=== PATIENT | male | born 1960 | race Caucasian/White ===

== ENCOUNTER 2024-12-12 20:27 | Inpatient (IN) | payer MEDICARE, SELFPAY ==
[2024-12-12 21:08] VITALS: BP 92/67; PULSE 118; RESP 18; TEMP 36.4; O2SAT 94; BMI 30.7
--- NOTE | 2024-12-12 21:13 | EKG_ITS ---
[address] [id number] [address], [place] [address] Test Date: 2024-12-12 Pat Name: Ashish Rosa Department: [facility] Room: Gender: Male Maternity Nurse: MEAGHAN : 1960 Requested By: Order Number: [id number] Reading MD: Sam Bermudez MD Measurements Intervals [place]oy Rate: 112 P: 58 SD: 144 QRS: -46 QRSD: 80 T: 52 QT: 336 QTc: 458 Interpretive Statements Sinus tachycardia Right atrial enlargement Pulmonary disease pattern Left anterior fascicular block NO PRIOR TRACING Electronically Signed On 12-13-2024 12:10:07 PDT by Sam Bermudez MD
--- NOTE | 2024-12-12 21:23 | DI.CT.S_ITS ---
PROCEDURE: CT ABDOMEN PELVIS W CON INDICATIONS: acute abd pain TECHNIQUE: After the administration of intravenous contrast, axial sections acquired from the lung bases to the pubic symphysis. Coronal and sagittal reformats were performed. For radiation dose reduction, the following was used: automated exposure control, adjustment of mA and/or kV according to patient size. COMPARISON: None. FINDINGS: Image quality: Diagnostic. Lower Chest: No significant findings. ABDOMEN: Liver: No solid mass. Gallbladder: No radiopaque gallstones or wall thickening. Biliary ducts: No biliary dilation. Pancreas: No ductal dilation. Spleen: Size is within normal limits. Adrenal Glands: No adrenal nodules. Kidneys and Ureters: No hydronephrosis. No solid mass. Bilateral simple appearing renal cysts are seen. No complex renal cystic lesion which requires follow up. Stomach and Bowel: Postsurgical changes are seen in right lower quadrant with surgical anastomosis appears intact. Fluid distended stomach and small bowel loops are noted with questionable wall thickening and enhancement. More distal small bowel loops are decompressed. Zone of transition likely involve distal small bowel loops in right lower quadrant series 2, image 92 and series 3, image 38. No abscess collection. Peritoneum: No abnormal intraperitoneal fluid. No free air. Ventral Wall: No significant ventral hernia. Abdominal Nodes: No retroperitoneal or mesenteric adenopathy by size criteria. Vessels: Aorta and inferior vena cava are normal in size. PELVIS: Pelvic Organs: Unremarkable. Bladder: No bladder wall thickening, accounting for underdistention. Pelvic Nodes: No enlarged lymph nodes. Miscellaneous: No inguinal hernias are seen. Bones: No aggressive osseous abnormality. IMPRESSION: 1. Finding is concerning for developing small bowel obstruction involving mid to distal small bowel loop in right lower quadrant abdomen possibly secondary to adhesions. 2. No abscess collection. No peritoneal free fluid or free air. Postsurgical changes in right abdomen with intact surgical anastomosis. 3. Other chronic findings as above. Dictated by: Omari Tilley M.D. on 12/12/2024 at 22:22 Approved by: Omari Tilley M.D. on 12/12/2024 at 22:26
[2024-12-12] MEDS: HYDROMORPHONE 0.5 MG INJ IV (21:26)
[2024-12-12] MEDS: ONDANSETRON 4 MG/2 ML INJ IV (21:27)
[2024-12-12 21:29] LABS: Add Manual Diff / Slide Review NO; Basophils Absolute Auto 0 /uL (0-100); Basophils Percent Auto 0.4 % (0-2); Eosinophils Absolute Auto 200 /uL (0-450); Eosinophils Percent Auto 3.3 % (2-4); Hematocrit 54.6 % (41-53); Hemoglobin 18.6 g/dL (13.5-17.5); Lymphocytes Absolute Auto 800 /uL (1100-4500); Lymphocytes Percent Auto 11.9 % (25-40); Mean Corpuscular HGB Conc 34.1 % (30-36); Mean Corpuscular Hemoglobin 33.2 PG (26-34); Mean Corpuscular Volume 97.6 fL (80-100); Monocytes Absolute Auto 700 /uL (0-900); Monocytes Percent Auto 11.8 % (3-14); Neutrophils Absolute Auto 4600 /uL (1500-7000); Neutrophils Percent Auto 72.6 % (50-75); Platelet Count 396 X10^3/uL (150-400); Red Cell Distribution Width 13.8 % (11.6-14.8); White Blood Cell Count 6.3 X10^3/uL (4.5-11.0)
[2024-12-12 21:38] LABS: Alanine Aminotransferase 22 IU/L (<50); Albumin 4.8 g/dL (3.5-5.0); Albumin Globulin Ratio 1.3 (1.0-2.8); Alkaline Phosphatase 113 U/L (38-126); Aspartate Aminotransferase 21 IU/L (17-59); BUN Creatinine Ratio 16.5 (6-22); Bilirubin Total 1.9 mg/dL (0.2-1.3); Blood Urea Nitrogen 30 mg/dL (9-20); Calcium 9.6 mg/dL (8.4-10.2); Carbon Dioxide 24 mmol/L (22-32); Chloride 99 mmol/L (98-107); Estimated Glomerular Filt Rate 40 mL/min (>60); Globulin 3.6 g/dL (1.7-4.1); Glucose 142 mg/dL (70-99); HEMOLYSIS < 15 (0-50); Lipase 43 U/L (23-300); Potassium 4.5 mmol/L (3.4-5.1); Sodium 136 mmol/L (137-145); Total Protein 8.4 g/dL (6.3-8.2)
[2024-12-12 21:56] VITALS: PULSE 108; RESP 24
[2024-12-12 22:00] VITALS: BP 99/63; PULSE 109; RESP 28; O2SAT 96
--- NOTE | 2024-12-12 22:03 | ED_ITS ---
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 Last obstruction hospitalization was approximately 3 years ago. For the last 48 hours he has not been able to keep any foods down with increasing distention and significant abdominal pain. No fevers chills, palpitations or chest pain. Related Data Allergies Allergy/AdvReac Type Severity Reaction Status Date / Time lithium Allergy Swelling Verified 12/12/24 21:08 of Lip/Tongue/Throat codeine AdvReac ITCHING Verified 12/12/24 21:08 Review of Systems Review of Systems Narrative: Pertinent positive and negative findings as per HPI Patient History Medical History (Updated 12/12/24 @ 22:14 by Franny Gross MD) Bowel obstruction Smoking Status: Current every day smoker Exam Initial Vital Signs Initial Vital Signs: Vital Signs Temperature 97.5 F L 12/12/24 21:08 Pulse Rate 118 H 12/12/24 21:08 Respiratory Rate 18 12/12/24 21:08 Blood Pressure 92/67 12/12/24 21:08 Pulse Oximetry 94 12/12/24 21:08 Oxygen Delivery Method Room Air 12/12/24 21:08 General: Acutely ill-appearing, distended and significantly tender abdomen Able to give a complete and coherent history. Well-nourished well-developed HEENT: Dry mucous membranes, normal sclera with reactive pupils, Respiratory: Lungs are clear to auscultation, no wheezing no rales no rhonchi. Full and symmetrical air movement Cardiac: Tachycardic but otherwise Regular rate and rhythm no murmurs no bruits Abdomen: Distended, multiple prior surgical scar is all well healed, tympanitic, tender diffusely with mild guarding no obvious rebound Skin: Quite dry and warm to the touch Neurologic: Grossly neurologically intact with no obvious asymmetries or abnormalities Extremities: No trauma, well perfused Psych: Cooperative, appropriate insight and affect Course Orders Ordered: ED Orders 12/12/24 21:13 EKG-12 Lead Stat 12/12/24 21:20 Complete Blood Count AUTO DIFF Stat Comprehensive Metabolic Panel Stat Lipase Stat 12/12/24 21:23 CT abdomen pelvis w con Stat Hydromorphone HCl (Hydromorphone 0.5 Mg Inj) 0.5 mg IV Q15MIN PRN PRN Reason: Pain, Last Admin: 12/12/24 21:26 Dose: 0.5 mg Documented By: ANMOL Sodium Chloride (Normal Saline 0.9%) 1,000 mls @ 1,000 mls/hr IV BOLUS ONE Stop: 12/12/24 22:22 Ondansetron HCl (Ondansetron 4 Mg/2 Ml Inj) 4 mg IV NOW PRN PRN Reason: Nausea And Vomiting Last Admin: 12/12/24 21:27 Dose: 4 mg Documented By: ANMOL Ondansetron HCl (Ondansetron 4 Mg Odt) 4 mg PO NOW PRN PRN Reason: Nausea And Vomiting Discontinued Medications Hydromorphone HCl (Hydromorphone 1 Mg Inj) 1 mg IV NOW ONE Stop: 12/12/24 22:03 Vital Signs Vital signs: Vital Signs - 8 hr 12/12/24 21:08 Temperature 97.5 F L Pulse Rate 118 H Respiratory Rate 18 Blood Pressure 92/67 Pulse Oximetry 94 Oxygen Delivery Method Room Air Medical Decision Making Lab Data 12/12/24 21:20 12/12/24 21:20 Labs: Lab Results 12/12/24 Range/Units 21:20 WBC 6.3 (4.5-11.0) X10^3/uL RBC 5.60 (4.5-5.9) X10^6/uL Hgb 18.6 H (13.5-17.5) g/dL Hct 54.6 H (41-53) % MCV 97.6 (80-100) fL MCH 33.2 (26-34) PG MCHC 34.1 (30-36) % RDW 13.8 (11.6-14.8) % Plt Count 396 (150-400) X10^3/uL Neut % (Auto) 72.6 (50-75) % Lymph % (Auto) 11.9 L (25-40) % [place] % (Auto) 11.8 (3-14) % Eos % (Auto) 3.3 (2-4) % Baso % (Auto) 0.4 (0-2) % Neut # (Auto) 4600 (4961-7782) /uL Lymph # (Auto) 800 L (4422-1213) /uL [place] # (Auto) 700 (0-900) /uL Eos # (Auto) 200 (0-450) /uL Baso # (Auto) 0 (0-100) /uL Sodium 136 L (137-145) mmol/L Potassium 4.5 (3.4-5.1) mmol/L Chloride 99 (98-107) mmol/L Carbon Dioxide 24 (22-32) mmol/L BUN 30 H (9-20) mg/dL Creatinine 1.82 H (0.66-1.25) mg/dL Estimated GFR 40 L (>60) mL/min BUN/Creatinine Ratio 16.5 (6-22) Glucose 142 H (70-99) mg/dL Calcium 9.6 (8.4-10.2) mg/dL Total Bilirubin 1.9 H (0.2-1.3) mg/dL AST 21 (17-59) IU/L ALT 22 (<50) IU/L Alkaline Phosphatase 113 (38-126) U/L Total Protein 8.4 H (6.3-8.2) g/dL Albumin 4.8 (3.5-5.0) g/dL Globulin 3.6 (1.7-4.1) g/dL Albumin/Globulin Ratio 1.3 (1.0-2.8) Lipase 43 (23-300) U/L Imaging Data CT scan - abdomen/pelvis: Radiologist's Impression: PROCEDURE: CT ABDOMEN PELVIS W CON INDICATIONS: acute abd pain TECHNIQUE: After the administration of intravenous contrast, axial sections acquired from the lung bases to the pubic symphysis. Coronal and sagittal reformats were performed. For radiation dose reduction, the following was used: automated exposure control, adjustment of mA and/or kV according to patient size. COMPARISON: None. FINDINGS: Image quality: Diagnostic. Lower Chest: No significant findings. ABDOMEN: Liver: No solid mass. Gallbladder: No radiopaque gallstones or wall thickening. Biliary ducts: No biliary dilation. Pancreas: No ductal dilation. Spleen: Size is within normal limits. Adrenal Glands: No adrenal nodules. Kidneys and Ureters: No hydronephrosis. No solid mass. Bilateral simple appearing renal cysts are seen. No complex renal cystic lesion which requires follow up. Stomach and Bowel: Postsurgical changes are seen in right lower quadrant with surgical anastomosis appears intact. Fluid distended stomach and small bowel loops are noted with questionable wall thickening and enhancement. More distal small bowel loops are decompressed. Zone of transition likely involve distal small bowel loops in right lower quadrant series 2, image 92 and series 3, image 38. No abscess collection. Peritoneum: No abnormal intraperitoneal fluid. No free air. Ventral Wall: No significant ventral hernia. Abdominal Nodes: No retroperitoneal or mesenteric adenopathy by size criteria. Vessels: Aorta and inferior vena cava are normal in size. PELVIS: Pelvic Organs: Unremarkable. Bladder: No bladder wall thickening, accounting for underdistention. Pelvic Nodes: No enlarged lymph nodes. Miscellaneous: No inguinal hernias are seen. Bones: No aggressive osseous abnormality. IMPRESSION: 1. Finding is concerning for developing small bowel obstruction involving mid to distal small bowel loop in right lower quadrant abdomen possibly secondary to adhesions. 2. No abscess collection. No peritoneal free fluid or free air. Postsurgical changes in right abdomen with intact surgical anastomosis. 3. Other chronic findings as above. Dictated by: Omari Tilley M.D. 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 Pertinent findings: CBC is unremarkable, hemo concentration suggesting dehydration CMP shows elevated creatinine at 1.8 with no prior labs for comparison. BUN is 30. Total bilirubin is elevated at 1.9 but remainder of LFTs are unremarkable Lipase is unremarkable Lactic acid Independently reviewed EKG: Sinus tachycardia at a rate of 112. No obvious ischemic changes Imaging studies independently reviewed: CT abdomen shows small bowel obstruction involving mid to distal small bowel loop in right lower quadrant abdomen possibly secondary to adhesions. No abscess collection. No peritoneal free fluid or free air. Postsurgical changes in right abdomen with intact surgical anastomosis. Consultations: Discussed with Dr. Dickerson, surgeon, we will consult Treatments: NG tube, Dilaudid, Zofran, fluid Discussion: 64-year-old gentleman with multiple prior surgeries, multiple prior bowel obstructions with recurrent bowel obstruction. He is dehydrated tachycardic hurting. IV fluids, pain medication, NG tube. At this point there was no indication of bowel ischemia or infection and antibiotics are not indicated. We will discuss hospital admission for pain control, continued NG suction and surgical consultation if required Discharge Plan Departure Patient Disposition: Admitted as Observation Clinical Impression: Bowel obstruction Qualifiers: Intestinal obstruction type: unspecified Intestinal obstruction extent: c omplete Qualified Code(s): K56.601 - Complete intestinal obstruction, unspecified as to cause
[2024-12-12] MEDS: HYDROMORPHONE 1 MG INJ IV (22:10)
[2024-12-12] MEDS: SODIUM CHLORIDE 0.9% 1,000 ML 1000 ML IV (22:14)
[2024-12-12 22:30] VITALS: BP 116/60; PULSE 108; RESP 19; O2SAT 99
[2024-12-12 23:00] VITALS: BP 122/69; PULSE 106; RESP 19; O2SAT 99
[2024-12-12 23:30] VITALS: BP 112/67; PULSE 101; RESP 19; O2SAT 95
[2024-12-13] VITALS (14 sets, daily range): BP systolic 105–157; BP diastolic 64–89; PULSE 84–107; RESP 16–51; TEMP 35.8–37.4; O2SAT 87–100; BMI 30.2
--- NOTE | 2024-12-13 00:35 | DI.RAD.S_ITS ---
PROCEDURE: XR CHEST 1V INDICATIONS: NG tube placement verification TECHNIQUE: One view of the chest was acquired. COMPARISON: None. FINDINGS: Surgical changes and devices: Nasogastric tube is in place. Distal tip and side port extends below the level of the diaphragm and projects in the left upper quadrant and expected location of the stomach. Lungs and pleura: Streaky bibasilar atelectasis. Lungs are otherwise clear. No pleural effusions or pneumothorax. Mediastinum: Mediastinal contours appear normal. Heart size is normal. Bones and chest wall: No suspicious bony lesions. Overlying soft tissues appear unremarkable. IMPRESSION: Nasogastric tube has been placed with adequate positioning. Dictated by: Terry Triplett M.D. on 12/13/2024 at 1:02 Approved by: Terry Triplett M.D. on 12/13/2024 at 1:03
[2024-12-13] MEDS: HYDROMORPHONE 0.5 MG INJ IV (00:59)
[2024-12-13] MEDS: ONDANSETRON 4 MG/2 ML INJ IV ×2 (02:20→05:07)
--- NOTE | 2024-12-13 03:54 | P.HP_ITS ---
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 Last obstruction hospitalization was approximately 3 years ago. He's had 12 total surgeries. No fevers chills, palpitations or chest pain. CT abdomen/pelvis showed SBO. Surgery consulted. NGT dropped draining 1.5L or more of brownish fluid. [facility] Medical History Bowel obstruction Social History household members: significant other Smoking Status: Current every day smoker alcohol intake: never Meds Home Medications and Allergies Allergies Allergy/AdvReac Type Severity Reaction Status Date / Time lithium Allergy Swelling Verified 12/12/24 21:08 of Lip/Tongue/Throat codeine AdvReac ITCHING Verified 12/12/24 21:08 Review of Systems Review of Systems Narrative: per HPI. Rest of 10-system review negative. Exam Vital Signs (past 8 hours): - 12/12/24 21:08 12/12/24 21:56 12/12/24 22:00 Temperature 97.5 F L Pulse Rate 118 H 108 H Respiratory Rate 18 24 Blood Pressure 92/67 99/63 Pulse Oximetry 94 Oxygen Delivery Method Room Air Oxygen Flow Rate 12/12/24 22:00 12/12/24 22:30 12/12/24 22:30 Temperature Pulse Rate 109 H 108 H Respiratory Rate 28 H 19 Blood Pressure 116/60 Pulse Oximetry 96 99 Oxygen Delivery Method Nasal Cannula Oxygen Flow Rate 3 12/12/24 23:00 12/12/24 23:00 12/12/24 23:30 Temperature Pulse Rate 106 H Respiratory Rate 19 Blood Pressure 122/69 112/67 Pulse Oximetry 99 Oxygen Delivery Method Nasal Cannula Oxygen Flow Rate 3 12/12/24 23:30 12/13/24 00:00 12/13/24 00:01 Temperature Pulse Rate 101 H 103 H Respiratory Rate 19 Blood Pressure 105/89 Pulse Oximetry 95 95 Oxygen Delivery Method Nasal Cannula Nasal Cannula Oxygen Flow Rate 3 3 12/13/24 00:01 12/13/24 00:30 12/13/24 00:30 Temperature Pulse Rate 102 H 101 H Respiratory Rate Blood Pressure 115/66 Pulse Oximetry 97 87 L Oxygen Delivery Method Nasal Cannula Room Air Oxygen Flow Rate 3 12/13/24 01:00 12/13/24 01:00 12/13/24 01:30 Temperature Pulse Rate 99 H 99 H Respiratory Rate 22 Blood Pressure 120/67 Pulse Oximetry 98 99 Oxygen Delivery Method Nasal Cannula Nasal Cannula Oxygen Flow Rate 3 3 12/13/24 01:30 12/13/24 02:00 12/13/24 02:00 Temperature Pulse Rate 97 H Respiratory Rate 24 Blood Pressure 125/68 116/71 Pulse Oximetry Oxygen Delivery Method Oxygen Flow Rate 12/13/24 02:30 12/13/24 02:30 12/13/24 03:00 Temperature Pulse Rate 95 H Respiratory Rate 18 Blood Pressure 127/71 117/64 Pulse Oximetry 99 Oxygen Delivery Method Nasal Cannula Oxygen Flow Rate 3 12/13/24 03:00 Temperature Pulse Rate 96 H Respiratory Rate 51 H Blood Pressure Pulse Oximetry Oxygen Delivery Method Oxygen Flow Rate Oxygen Delivery Method Nasal Cannula Oxygen Flow Rate 3 Narrative Exam Narrative: Patient was evaluated entirely through 2-way audio/video telemedicine with RN assistance in exam. Physician was not present at beside in person at any time for this evaluation. Consent for telemedicine obviously obtained from patient. Const Other: NAD, but appears weak, uncomfortable. HENMT Other: anicteric sclerae, NG tube in place, dry MM Resp Other: digital stethoscope - clear but late expiratory wheeze all murdock Cardio Other: RRR GI Other: distended but soft, hypo BS Skin Other: no rash or lesions seen Neuro Other: normal speech Extrem Other: no edema BLE Psych Other: appropriate affect Objective Imaging US - abdomen: Radiologist's impression: Finding is concerning for developing small bowel obstruction involving mid to distal small bowel loop in right lower quadrant abdomen possibly secondary to adhesions. Labs 12/12/24 21:20 12/12/24 21:20 Labs: Laboratory Results - last 24 hr 12/12/24 21:20 WBC 6.3 RBC 5.60 Hgb 18.6 H Hct 54.6 H MCV 97.6 MCH 33.2 MCHC 34.1 RDW 13.8 Plt Count 396 Neut % (Auto) 72.6 Lymph % (Auto) 11.9 L [place] % (Auto) 11.8 Eos % (Auto) 3.3 Baso % (Auto) 0.4 Neut # (Auto) 4600 Lymph # (Auto) 800 L [place] # (Auto) 700 Eos # (Auto) 200 Baso # (Auto) 0 Sodium 136 L Potassium 4.5 Chloride 99 Carbon Dioxide 24 BUN 30 H Creatinine 1.82 H Estimated GFR 40 L BUN/Creatinine Ratio 16.5 Glucose 142 H Calcium 9.6 Total Bilirubin 1.9 H AST 21 ALT 22 Alkaline Phosphatase 113 Total Protein 8.4 H Albumin 4.8 Globulin 3.6 Albumin/Globulin Ratio 1.3 Lipase 43 Assessment & Plan Assessment and plan (1) Bowel obstruction: Qualifiers: Intestinal obstruction extent: complete Intestinal obstruction type: u nspecified Qualified Code(s): K56.601 - Complete intestinal obstruction, unspecified as to cause Status: Acute Assessment & Plan narrative: 1. Acute, recurrent small bowel obstruction with inability to eat/keep food down and abdominal pain, POA 2. Dehydration, hemoconcentration 3. Mild hyponatremia 4. SABIHA Plan: 1. Admit med-surg, inpatient 2. NGT decompression 3. Surgery consulted 4. Zosyn empirically if develops fever or WBC elevation 5. IV fluids for dehydration, hemoconcentration 6. IV PPI 7. Zofran alternating with phenergan Code: full DVT prophylaxis: UFH Time-Based Coding :: [TOTAL MINUTES] spent with patient and on the chart (including review of chart, obtaining history, exam, reviewing outside data, placing orders, documenting exam and treatment plan, and counseling patient) on [DATE].
[2024-12-13] MEDS: BENZOCAINE/MENTHOL 1 LOZ PKT 1 EACH PO (05:07)
[2024-12-13] MEDS: MORPHINE 2 MG/ML INJ 1 MG IV (05:07)
[2024-12-13] MEDS: SODIUM CHLORIDE 0.9% 1,000 ML 100 ML IV ×2 (05:20→15:02)
[2024-12-13 05:25] LABS: Add Manual Diff / Slide Review NO; Basophils Absolute Auto 0 /uL (0-100); Basophils Percent Auto 0.2 % (0-2); Eosinophils Absolute Auto 400 /uL (0-450); Hematocrit 49.7 % (41-53); Hemoglobin 16.8 g/dL (13.5-17.5); Lymphocytes Absolute Auto 1000 /uL (1100-4500); Lymphocytes Percent Auto 13.1 % (25-40); Mean Corpuscular HGB Conc 33.7 % (30-36); Mean Corpuscular Hemoglobin 33.1 PG (26-34); Monocytes Absolute Auto 2000 /uL (0-900); Monocytes Percent Auto 25.1 % (3-14); Neutrophils Absolute Auto 4400 /uL (1500-7000); Neutrophils Percent Auto 56.6 % (50-75); Platelet Count 344 X10^3/uL (150-400); Red Blood Cell Count 5.07 X10^6/uL (4.5-5.9); Red Cell Distribution Width 13.9 % (11.6-14.8); White Blood Cell Count 7.8 X10^3/uL (4.5-11.0)
[2024-12-13 05:36] LABS: Alanine Aminotransferase 19 IU/L (<50); Albumin 4.5 g/dL (3.5-5.0); Albumin Globulin Ratio 1.6 (1.0-2.8); Alkaline Phosphatase 94 U/L (38-126); Aspartate Aminotransferase 20 IU/L (17-59); BUN Creatinine Ratio 20.5 (6-22); Bilirubin Total 1.7 mg/dL (0.2-1.3); Blood Urea Nitrogen 38 mg/dL (9-20); Calcium 8.9 mg/dL (8.4-10.2); Carbon Dioxide 23 mmol/L (22-32); Chloride 102 mmol/L (98-107); Estimated Glomerular Filt Rate 40 mL/min (>60); Globulin 2.9 g/dL (1.7-4.1); Glucose 127 mg/dL (70-99); HEMOLYSIS 20 (0-50); Lipase 19 U/L (23-300); Potassium 4.6 mmol/L (3.4-5.1); Sodium 137 mmol/L (137-145); Total Protein 7.4 g/dL (6.3-8.2)
[2024-12-13 05:37] LABS: Magnesium 1.7 mg/dL (1.6-2.3)
[2024-12-13 06:16] LABS: Ammonia (NH3) < 9 umol/L (9-30)
[2024-12-13] MEDS: HEPARIN 5,000 UNIT/ML VIAL 5000 UNIT SUBCUT ×2 (08:11→22:08)
[2024-12-13] MEDS: HYDROMORPHONE 2 MG INJ IV (08:11)
[2024-12-13] MEDS: PANTOPRAZOLE 40 MG VIAL IV (08:12)
[2024-12-13] MEDS: INFLUENZA HD VACCINE 0.5 ML SYRINGE IM (09:45)
--- NOTE | 2024-12-13 12:56 | PM.CN.IH.1 ---
History of Present Illness Consult details Date Patient Seen: 12/13/24 Time Patient Seen: 12:56 Chief complaint: Vomiting Narrative: Ashish is a 64-year-old man who has had multiple bowel obstructions and exploratory abdominal surgery for bowel obstructions over his lifetime since he had a perforated appendicitis at age 17. His most recent surgery was 3 years ago. He has had multiple ostomies and bowel resections. He presented with 48 hours of abdominal pain, distention, nausea and vomiting. A CT scan showed a small-bowel obstruction. Since coming to his room he has passed gas once. Meds Home Medications and Allergies Allergies Allergy/AdvReac Type Severity Reaction Status Date / Time lithium Allergy Swelling Verified 12/12/24 21:08 of Lip/Tongue/Throat codeine AdvReac ITCHING Verified 12/12/24 21:08 Exam Vital Signs (past 8 hours): - 12/13/24 05:49 12/13/24 08:00 12/13/24 09:44 Pulse Oximetry 96 Oxygen Delivery Method Nasal Cannula Nasal Cannula High Flow Nasal Cannula Oxygen Flow Rate 2 Oxygen Delivery Method High Flow Nasal Cannula Oxygen Flow Rate 2 Narrative Exam Narrative: Abdomen is soft, moderately distended without peritonitis Numerous abdominal surgical scars Objective Labs 12/13/24 05:10 12/13/24 05:10 Labs: Laboratory Results - last 24 hr 12/12/24 12/13/24 12/13/24 21:20 05:10 06:00 WBC 6.3 7.8 RBC 5.60 5.07 Hgb 18.6 H 16.8 Hct 54.6 H 49.7 MCV 97.6 98.0 MCH 33.2 33.1 MCHC 34.1 33.7 RDW 13.8 13.9 Plt Count 396 344 Neut % (Auto) 72.6 56.6 Lymph % (Auto) 11.9 L 13.1 L [place] % (Auto) 11.8 25.1 H Eos % (Auto) 3.3 5.0 H Baso % (Auto) 0.4 0.2 Neut # (Auto) 4600 4400 Lymph # (Auto) 800 L 1000 L [place] # (Auto) 700 2000 H Eos # (Auto) 200 400 Baso # (Auto) 0 0 Sodium 136 L 137 Potassium 4.5 4.6 Chloride 99 102 Carbon Dioxide 24 23 BUN 30 H 38 H Creatinine 1.82 H 1.85 H Estimated GFR 40 L 40 L BUN/Creatinine Ratio 16.5 20.5 Glucose 142 H 127 H Lactate Calcium 9.6 8.9 Magnesium 1.7 Total Bilirubin 1.9 H 1.7 H AST 21 20 ALT 22 19 Alkaline Phosphatase 113 94 Ammonia < 9 L Total Protein 8.4 H 7.4 Albumin 4.8 4.5 Globulin 3.6 2.9 Albumin/Globulin Ratio 1.3 1.6 Lipase 43 19 L D 12/13/24 09:16 WBC RBC Hgb Hct MCV MCH MCHC RDW Plt Count Neut % (Auto) Lymph % (Auto) [place] % (Auto) Eos % (Auto) Baso % (Auto) Neut # (Auto) Lymph # (Auto) [place] # (Auto) Eos # (Auto) Baso # (Auto) Sodium Potassium Chloride Carbon Dioxide BUN Creatinine Estimated GFR BUN/Creatinine Ratio Glucose Lactate 1.0 Calcium Magnesium Total Bilirubin AST ALT Alkaline Phosphatase Ammonia Total Protein Albumin Globulin Albumin/Globulin Ratio Lipase PFSH Medical History Bowel obstruction Social History household members: significant other Tobacco & Substance Use Smoking Status: Current every day smoker alcohol intake: never Assessment & Plan Assessment and plan (1) Small bowel obstruction: Status: Acute Plan Hopefully he will be able to resolve without surgery. He has passed gas one time so far. If he passes more gas today we can DC the NG tube and start sips of clears. Okay to have coffee. Time-Based Coding :: [TOTAL MINUTES] spent with patient and on the chart (including review of chart, obtaining history, exam, reviewing outside data, placing orders, documenting exam and treatment plan, and counseling patient) on [DATE]. PROFEE Charge Codes Inpatient or Observation consultation: [id number]
--- NOTE | 2024-12-13 13:52 | P.HP_ITS ---
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 Last obstruction hospitalization was approximately 3 years ago. He's had 12 total surgeries. No fevers chills, palpitations or chest pain. CT abdomen/pelvis showed SBO. Surgery consulted. NGT dropped draining 1.5L or more of brownish fluid. Hospital course: 12/13: Overnight patient continues to have discomfort stated that he has had this resolve with strong coffee in the past. Consensus decision between surgery myself in the patient was to try a triple expresso. The result was large bowel movement passing lots of gas and relief of abdominal pain starting on clear liquid diet. 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 For past surgical, past medical social history and family history please see bottom of the note: Review of systems: No unusual weight loss or weight gain No chest pain palpitations or shortness a breath wheezing No urinary symptoms No paresthesia paresis Physical exam: Uncomfortable appearing but fit elderly male quite muscular HEENT unremarkable Heart rate and rhythm regular lungs clear Abdomen is distended somewhat tender scant bowel sounds Extremities no edema For objective laboratory and imaging please see bottom of the note: Assessment and plan: * Abdominal distention and pain lasting several days with imaging suggestive of small-bowel obstruction, however, patient states that strong coffee usually relieves this and has done so in the past. Patient was given a triple expresso and within 45 minutes at a large bowel movement and passing large amounts of gas and no longer had abdominal pain or nausea NG tube was removed. 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 the 1st beginning with a burst appendix at age 17 DVT prophylaxis: * Not indicate Code status: * Full code FOR[facility]LY [facility] Medical History Bowel obstruction Social History household members: significant other Smoking Status: Current every day smoker alcohol intake: never Meds Home Medications and Allergies Allergies Allergy/AdvReac Type Severity Reaction Status Date / Time lithium Allergy Swelling Verified 12/12/24 21:08 of Lip/Tongue/Throat codeine AdvReac ITCHING Verified 12/12/24 21:08 Exam Vital Signs (past 8 hours): - 12/13/24 08:00 12/13/24 09:44 Pulse Oximetry 96 Oxygen Delivery Method Nasal Cannula High Flow Nasal Cannula Oxygen Flow Rate 2 Oxygen Delivery Method High Flow Nasal Cannula Oxygen Flow Rate 2 Objective Labs 12/13/24 05:10 12/13/24 05:10 Labs: Laboratory Results - last 24 hr 12/12/24 12/13/24 12/13/24 21:20 05:10 06:00 WBC 6.3 7.8 RBC 5.60 5.07 Hgb 18.6 H 16.8 Hct 54.6 H 49.7 MCV 97.6 98.0 MCH 33.2 33.1 MCHC 34.1 33.7 RDW 13.8 13.9 Plt Count 396 344 Neut % (Auto) 72.6 56.6 Lymph % (Auto) 11.9 L 13.1 L [place] % (Auto) 11.8 25.1 H Eos % (Auto) 3.3 5.0 H Baso % (Auto) 0.4 0.2 Neut # (Auto) 4600 4400 Lymph # (Auto) 800 L 1000 L [place] # (Auto) 700 2000 H Eos # (Auto) 200 400 Baso # (Auto) 0 0 Sodium 136 L 137 Potassium 4.5 4.6 Chloride 99 102 Carbon Dioxide 24 23 BUN 30 H 38 H Creatinine 1.82 H 1.85 H Estimated GFR 40 L 40 L BUN/Creatinine Ratio 16.5 20.5 Glucose 142 H 127 H Lactate Calcium 9.6 8.9 Magnesium 1.7 Total Bilirubin 1.9 H 1.7 H AST 21 20 ALT 22 19 Alkaline Phosphatase 113 94 Ammonia < 9 L Total Protein 8.4 H 7.4 Albumin 4.8 4.5 Globulin 3.6 2.9 Albumin/Globulin Ratio 1.3 1.6 Lipase 43 19 L D 12/13/24 09:16 WBC RBC Hgb Hct MCV MCH MCHC RDW Plt Count Neut % (Auto) Lymph % (Auto) [place] % (Auto) Eos % (Auto) Baso % (Auto) Neut # (Auto) Lymph # (Auto) [place] # (Auto) Eos # (Auto) Baso # (Auto) Sodium Potassium Chloride Carbon Dioxide BUN Creatinine Estimated GFR BUN/Creatinine Ratio Glucose Lactate 1.0 Calcium Magnesium Total Bilirubin AST ALT Alkaline Phosphatase Ammonia Total Protein Albumin Globulin Albumin/Globulin Ratio Lipase Assessment & Plan Time-Based Coding :: 55 minutes spent with patient and on the chart (including review of chart, obtaining history, exam, reviewing outside data, placing orders, documenting exam and treatment plan, and counseling patient). Quality MIPS - Admit I confirm the patient?s Advance Care Plan is present, Code status is documented, Surrogate decision maker is in patient?s record [If Yes, STOP here]: Yes MIPS - Meds 'Current medications' to include all prescriptions, [id number] products, herbals, cannabis/cannabidiol products, and vitamin/mineral/dietary (nutritional) supplements. I have utilized all available resources to obtain, update, or review the patient?s current medications. [If Yes, STOP here]: Yes
[2024-12-13] MEDS: SODIUM CHLORIDE 0.9% FLUSH 10 ML IV (22:08)
[2024-12-14 07:00] VITALS: O2SAT 97
[2024-12-14 10:48] VITALS: BP 163/99; PULSE 74; RESP 18; TEMP 36.1; O2SAT 99
--- NOTE | 2024-12-14 11:10 | P.DS_ITS ---
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 Last obstruction hospitalization was approximately 3 years ago. He's had 12 total surgeries. No fevers chills, palpitations or chest pain. CT abdomen/pelvis showed SBO. Surgery consulted. NGT dropped draining 1.5L or more of brownish fluid. Hospital course: 12/13: Overnight patient continues to have discomfort stated that he has had this resolve with strong coffee in the past. Consensus decision between surgery myself in the patient was to try a triple expresso. The result was large bowel movement passing lots of gas and relief of abdominal pain starting on clear liquid diet. 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 Discharge Providers Provider Date of admission: 12/13/24 03:43 Discharge Date: 12/14/24 Consults: 12/13/24 03:03 Consult to General Surgery Stat Comment: Consulting Provider: Abdirahman Dickerson Reason for consultation: Small-bowel obstruction Has provider been notified: Yes Discharge provider: Rg Ledbetter DO Summary Hospital Course Discharge Diagnosis: 1. Small bowel obstruction vs ileus, acute, present on admission 2. Chronic HTN Hospital Course: This is a 64-year-old male with multiple prior abdominal surgeries who was admitted with a small-bowel obstruction noted on presented imaging after presenting with abdominal pain and nausea. He had quick resolution of his symptoms with supportive care, eventually passing a bowel movement. After his bowel movement he had a 2nd, and was able to quickly advance his diet. Once he was able to tolerate a regular meal he was discharged home. He takes no medications currently, though apparently was supposed to be taking blood pressure medicines which he would stopped. His blood pressure was mildly elevated, but he reports good values at home. Recommend continued home monitoring and follow-up with primary care for possible further initiation of antihypertensives. Time Spent with Patient Time spent: Greater than 30 minutes Exam Vital Signs (past 8 hours): - 06/18/25 07:00 12/14/24 10:48 Temperature 96.9 F L Pulse Rate 74 Respiratory Rate 18 Blood Pressure 163/99 H Pulse Oximetry 97 99 Oxygen Delivery Method Room Air Oxygen Flow Rate 0 Oxygen Delivery Method Room Air Oxygen Flow Rate 0 Narrative Exam Narrative: Uncomfortable appearing but fit elderly male quite muscular HEENT unremarkable Heart rate and rhythm regular lungs clear Abdomen is distended somewhat tender scant bowel sounds Extremities no edema Objective Labs 12/13/24 05:10 12/13/24 05:10 [facility] Medical History Bowel obstruction Social History household members: significant other Smoking Status: Current every day smoker alcohol intake: never Discharge Plan Discharge Plan Patient Disposition: Home Provider Discharge Comment: You were admitted to the hospital with possible bowel obstruction or ileus. Now resolved and improved symptoms. Recommend checking BP at home, try to establish with PCP in the area. Diet/Activity/Treatments Diet: Diet as Tolerated and Regular Activity: No restrictions Skin/Wound/Dressing Care Report to your healthcare provider any signs of infection, such as:: increased pain Visit Report/Discharge Packet Stand Alone Forms: Patient Portal/API, Stroke Signs & Symptoms
--- NOTE | 2024-12-14 11:28 | PC.NURSE ---
Pt wanting to be D/C Denies discomfort. SL D/C intact. Home instructions given w/understanding Pt escorted ambulatory by staff to waiting vehicle D/C in stable status
== END 2024-12-14 11:23 | disposition home or self-care (01) | DRG 389 ==
LOC: ED 12-13 00:16 → AC 12-13 08:08
PROVIDERS: Surgery; Admitting Provider Internal Medicine; Emergency Provider Emergency Medicine; Visit Provider Internal Medicine
DX: K56.601 Complete intestinal obstruction, unspecified as to cause (principal); E87.1 Hypo-osmolality and hyponatremia; N17.9 Acute kidney failure, unspecified; F17.200 Nicotine dependence, unspecified, uncomplicated; E86.0 Dehydration; K56.7 Ileus, unspecified; I10 Essential (primary) hypertension; Z87.19 Personal history of other diseases of the digestive system; Z98.890 Other specified postprocedural states
CPT/HCPCS: 36415; 71045; 74177; 80053; 81003; 82140; 83605; 83690; 83735; 85025; 90471; 90662; 93005; 96361; 96374; 96375; 96376; 99284; 99285; J1171; J1644; J2270; J2405; J2470; Q9967

== ENCOUNTER 2025-04-25 09:42 | Inpatient (IN) | payer MEDICARE, MEDICAID, SELFPAY ==
[2024-12-13 04:37] VITALS: BMI 30.2
[2025-04-25] VITALS (23 sets, daily range): BP systolic 143–196; BP diastolic 80–106; PULSE 61–107; RESP 12–45; TEMP 35.9–36.6; O2SAT 91–98; BMI 30.8
--- NOTE | 2025-04-25 09:54 | EKG_ITS ---
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
[2025-04-25] MEDS: ONDANSETRON 4 MG/2 ML INJ IV ×2 (10:03→21:55)
[2025-04-25] MEDS: SODIUM CHLORIDE 0.9% 1,000 ML 1000 ML IV (10:03)
[2025-04-25 10:14] LABS: Add Manual Diff / Slide Review NO; Hematocrit 54.4 % (41-53); Hemoglobin 18.4 g/dL (13.5-17.5); Lymphocytes Absolute Auto 600 /uL (1100-4500); Mean Corpuscular HGB Conc 33.8 % (30-36); Mean Corpuscular Hemoglobin 32.3 PG (26-34); Mean Corpuscular Volume 95.5 fL (80-100); Platelet Count 375 X10^3/uL (150-400)
[2025-04-25 10:27] LABS: Alanine Aminotransferase 29 IU/L (<50); Albumin 5.5 g/dL (3.5-5.0); Albumin Globulin Ratio 1.4 (1.0-2.8); Alkaline Phosphatase 113 U/L (38-126); Blood Urea Nitrogen 30 mg/dL (9-20); Calcium 9.9 mg/dL (8.4-10.2); Carbon Dioxide 24 mmol/L (22-32); Chloride 99 mmol/L (98-107); Estimated Glomerular Filt Rate 51 mL/min (>60); Globulin 4.0 g/dL (1.7-4.1); Glucose 194 mg/dL (70-99); HEMOLYSIS < 15 (0-50); Lipase 54 U/L (23-300); Potassium 4.2 mmol/L (3.4-5.1); Sodium 139 mmol/L (137-145); Total Protein 9.5 g/dL (6.3-8.2)
[2025-04-25 10:29] LABS: Lactate (Lactic Acid) 4.2 mmol/L (0.7-2.1)
--- NOTE | 2025-04-25 10:48 | DI.CT.S_ITS ---
PROCEDURE: CT ABDOMEN PELVIS W CON INDICATIONS: concern bowel obstruction, 12+ surgeries, vomiting/diarrhea/ TECHNIQUE: After the administration of intravenous contrast, axial sections acquired from the lung bases to the pubic symphysis. Coronal and sagittal reformats were performed. For radiation dose reduction, the following was used: automated exposure control, adjustment of mA and/or kV according to patient size. COMPARISON: Merged With [facility], CT, CT ABDOMEN PELVIS W CON, 12/12/2024, 21:40. FINDINGS: Image quality: Diagnostic. Lower Chest: No significant findings. ABDOMEN: Liver: No solid mass. Gallbladder: No radiopaque gallstones or wall thickening. Biliary ducts: No biliary dilation. Pancreas: No ductal dilation. Spleen: Size is within normal limits. Adrenal Glands: No adrenal nodules. Kidneys and Ureters: No hydronephrosis. No solid mass. No complex renal cystic lesion which requires follow up. Stomach and Bowel: There is a proximal small bowel obstruction present. Proximal jejunum is dilated up to 6.1 cm. The obstruction is either partial or early. Peritoneum: No abnormal intraperitoneal fluid. No free air. Ventral Wall: No significant ventral hernia. Abdominal Nodes: No retroperitoneal or mesenteric adenopathy by size criteria. Vessels: Aorta and inferior vena cava are normal in size. PELVIS: Pelvic Organs: Prostatomegaly. Bladder: No bladder wall thickening, accounting for underdistention. Pelvic Nodes: No enlarged lymph nodes. Miscellaneous: No inguinal hernias are seen. Bones: No aggressive osseous abnormality. Old compressions of T12, L1, and L2. IMPRESSION: Proximal small bowel obstruction. Suspect osteoporosis. Old compressions. Dictated by: Swapnil Viera M.D. on 04/25/2025 at 11:43 Approved by: Swapnil Viera M.D. on 04/25/2025 at 11:47
[2025-04-25 11:07] LABS: Procalcitonin 1.27 ng/mL (<0.5)
[2025-04-25 11:46] LABS: Reflexed Lactate in 2 Hours Y
[2025-04-25 12:26] LABS: Lactate 2HR (Lactic Acid Rflx) 1.3 mmol/L (0.7-2.1)
--- NOTE | 2025-04-25 13:58 | PM.CN.IH.1 ---
History of Present Illness Consult details Date Patient Seen: 04/25/25 Time Patient Seen: 13:59 Chief complaint: possible intestinal blockage Reason for consult: SBO Requesting provider: Kaylyn Qureshi Narrative: Surgery consult requested by ED for SBO. Patient being admitted to hospitalist service. H/O multiple abdominal surgeries, multiple SBOs. Most recent admission for SBO resolved with conservative measures, discharged 12/14/24. CT: There is a proximal small bowel obstruction present. Proximal jejunum is dilated up to 6.1 cm. The obstruction is either partial or early. WBC 17.1. Lactate normalized after fluid. Meds Home Medications and Allergies Allergies Allergy/AdvReac Type Severity Reaction Status Date / Time lithium Allergy Swelling Verified 04/25/25 09:51 of Lip/Tongue/Throat codeine AdvReac ITCHING Verified 04/25/25 09:51 Exam Vital Signs (past 8 hours): - 04/25/25 09:43 04/25/25 09:48 04/25/25 09:49 Temperature 96.6 F L Pulse Rate 64 63 Respiratory Rate 45 H Blood Pressure 171/89 H 171/89 H Pulse Oximetry 97 96 Oxygen Delivery Method Room Air 04/25/25 09:49 04/25/25 10:00 04/25/25 10:10 Temperature Pulse Rate 61 105 H 104 H Respiratory Rate 29 H 20 Blood Pressure Pulse Oximetry 96 Oxygen Delivery Method 04/25/25 10:10 04/25/25 10:15 04/25/25 10:15 Temperature Pulse Rate 104 H Respiratory Rate 19 Blood Pressure 162/98 H 154/88 H Pulse Oximetry Oxygen Delivery Method 04/25/25 10:30 04/25/25 10:30 04/25/25 11:00 Temperature Pulse Rate 104 H 98 H Respiratory Rate 19 21 Blood Pressure 155/87 H Pulse Oximetry 97 Oxygen Delivery Method 04/25/25 11:30 04/25/25 12:00 04/25/25 12:08 Temperature Pulse Rate 98 H 101 H Respiratory Rate 20 22 Blood Pressure 165/99 H Pulse Oximetry 91 96 Oxygen Delivery Method 04/25/25 12:08 04/25/25 12:15 04/25/25 12:15 Temperature Pulse Rate 104 H 107 H Respiratory Rate 12 15 Blood Pressure 176/104 H Pulse Oximetry 92 94 Oxygen Delivery Method 04/25/25 12:30 04/25/25 12:30 04/25/25 12:45 Temperature Pulse Rate 102 H Respiratory Rate 21 Blood Pressure 175/102 H 179/103 H Pulse Oximetry Oxygen Delivery Method 04/25/25 12:45 04/25/25 13:00 04/25/25 13:00 Temperature Pulse Rate 101 H 99 H Respiratory Rate 21 25 H Blood Pressure 182/102 H Pulse Oximetry Oxygen Delivery Method 04/25/25 13:15 04/25/25 13:15 Temperature Pulse Rate 94 H Respiratory Rate 25 H Blood Pressure 196/106 H Pulse Oximetry Oxygen Delivery Method Oxygen Delivery Method Room Air Const Other: Uncomfortable, emesis bag in hand Resp Effort & Inspection: normal respiratory effort and able to speak in complete sentences Cardio Rate: regular rate GI Other: ABD: soft, distended, non-peritoneal Objective Labs 04/25/25 10:01 04/25/25 10:01 Labs: Laboratory Results - last 24 hr 04/25/25 04/25/25 10:01 12:08 WBC 17.1 H RBC 5.69 Hgb 18.4 H Hct 54.4 H MCV 95.5 MCH 32.3 MCHC 33.8 RDW 13.8 Plt Count 375 Neut % (Auto) 89.3 H Lymph % (Auto) 3.6 L [place] % (Auto) 5.5 Eos % (Auto) 0.5 L Baso % (Auto) 1.1 Neut # (Auto) 32696 H Lymph # (Auto) 600 L [place] # (Auto) 900 Eos # (Auto) 100 Baso # (Auto) 200 H Sodium 139 Potassium 4.2 Chloride 99 Carbon Dioxide 24 BUN 30 H Creatinine 1.49 H Estimated GFR 51 L BUN/Creatinine Ratio 20.1 Glucose 194 H Lactate 4.2 H* 1.3 Calcium 9.9 Total Bilirubin 2.4 H AST 34 ALT 29 Alkaline Phosphatase 113 Total Protein 9.5 H Albumin 5.5 H Globulin 4.0 Albumin/Globulin Ratio 1.4 Lipase 54 Procalcitonin 1.27 H PFSH Medical History Bowel obstruction Social History household members: significant other Tobacco & Substance Use Smoking Status: Current every day smoker alcohol intake: never Assessment & Plan Assessment and plan (1) Small bowel obstruction: Status: Acute Plan SBO, recurrent Plan NGT, NPO, IVF Plan gastrografin challenge 04/26 after period of decompression Recommend correcting lytes as needed, K, Mg, Phos Prior SBOs resolved with conservative measures Will follow Time-Based Coding :: [TOTAL MINUTES] spent with patient and on the chart (including review of chart, obtaining history, exam, reviewing outside data, placing orders, documenting exam and treatment plan, and counseling patient) on [DATE]. PROFEE Charge Codes Inpatient or Observation consultation: 16512
--- NOTE | 2025-04-25 14:17 | P.HP_ITS ---
History of Present Illness History of Present Illness Date Patient Seen: 04/25/25 Time Patient Seen: 14:17 Chief complaint: possible intestinal blockage Narrative: This is a 65-year-old male with a history of hypertension, hyperlipidemia and prior bowel perforations after a bowel obstruction who presents with 2 weeks of abdominal pain along with nausea and fevers followed by 4 days of diarrhea and vomiting bringing him finally to the ED. With placement of a nasogastric tube he slowly begins to feel better and copious amounts of bilious fluid are removed. His white blood count is 17.1 with a hemoglobin of 18.4 and a procalcitonin of 1.27. The total bilirubin is 2.4. The lactic acid level was initially 4.2, coming down to 1.[address] scan shows a proximal small-bowel obstruction with the jejunum dilated to 6 cm. Assessment and plan: Acute small-bowel obstruction, present on admission. Active. -general surgery has consulted and will be seeing him. -NG tube draining copious bilious fluid. -NPO, follow leukocytosis, hemoconcentration and electrolytes. -Gastrografin challenge is planned after decompression. Acute kidney injury, present on admission. Active. -creatinine 1.49. Treat with SBO decompression and IV fluid. History of hypertension, present on admission. Active. -no current treatment. -follow and treat with IV/p.o. as indicated and tolerated. Enoxaparin for DVT prevention [facility] Medical History (Updated 04/25/25 @ 19:13 by Jeancarlos Heaton MD) HLD (hyperlipidemia) HTN (hypertension) Bowel obstruction Surgical History (Updated 04/25/25 @ 19:14 by Jeancarlos Heaton MD) History of intestinal surgery Family History (Updated 04/25/25 @ 19:14 by Jeancarlos Heaton MD) Mother COPD (chronic obstructive pulmonary disease) Social History household members: significant other Smoking Status: Current every day smoker alcohol intake: never Meds Home Medications and Allergies Home Medications ?Medication ?Instructions ?Recorded ?Confirmed ?Type No Known Home Medications 04/25/2503/30 History Allergies Allergy/AdvReac Type Severity Reaction Status Date / Time lithium Allergy Swelling Verified 04/25/25 15:48 of Lip/Tongue/Throat codeine AdvReac ITCHING Verified 04/25/25 15:48 Review of Systems Review of Systems Narrative: Positive for abdominal pain, diarrhea, vomiting, fever. Negative for chills, sweats, chest pain, dysuria, joint pain, rash, sore throat. Exam Vital Signs (past 8 hours): - 04/25/25 09:43 04/25/25 09:48 04/25/25 09:49 Temperature 96.6 F L Pulse Rate 64 63 Respiratory Rate 45 H Blood Pressure 171/89 H 171/89 H Pulse Oximetry 97 96 Oxygen Delivery Method Room Air 04/25/25 09:49 04/25/25 10:00 04/25/25 10:10 Temperature Pulse Rate 61 105 H 104 H Respiratory Rate 29 H 20 Blood Pressure Pulse Oximetry 96 Oxygen Delivery Method 04/25/25 10:10 04/25/25 10:15 04/25/25 10:15 Temperature Pulse Rate 104 H Respiratory Rate 19 Blood Pressure 162/98 H 154/88 H Pulse Oximetry Oxygen Delivery Method 04/25/25 10:30 04/25/25 10:30 04/25/25 11:00 Temperature Pulse Rate 104 H 98 H Respiratory Rate 19 21 Blood Pressure 155/87 H Pulse Oximetry 97 Oxygen Delivery Method 04/25/25 11:30 04/25/25 12:00 04/25/25 12:08 Temperature Pulse Rate 98 H 101 H Respiratory Rate 20 22 Blood Pressure 165/99 H Pulse Oximetry 91 96 Oxygen Delivery Method 04/25/25 12:08 04/25/25 12:15 04/25/25 12:15 Temperature Pulse Rate 104 H 107 H Respiratory Rate 12 15 Blood Pressure 176/104 H Pulse Oximetry 92 94 Oxygen Delivery Method 04/25/25 12:30 04/25/25 12:30 04/25/25 12:45 Temperature Pulse Rate 102 H Respiratory Rate 21 Blood Pressure 175/102 H 179/103 H Pulse Oximetry Oxygen Delivery Method 04/25/25 12:45 04/25/25 13:00 04/25/25 13:00 Temperature Pulse Rate 101 H 99 H Respiratory Rate 21 25 H Blood Pressure 182/102 H Pulse Oximetry Oxygen Delivery Method 04/25/25 13:15 04/25/25 13:15 Temperature Pulse Rate 94 H Respiratory Rate 25 H Blood Pressure 196/106 H Pulse Oximetry Oxygen Delivery Method Oxygen Delivery Method Room Air Narrative Exam Narrative: Alert and oriented x3. Appears to be in significant and severe distress, also experiencing sedating effects of pain medicine. Pupils are equally round and reactive to light and accommodation. Extraocular muscles are intact. Sclerae are pink and nonicteric. Throat looks normal. No lymph nodes are felt head, neck, supraclavicular area. JVD is less than 6 cm. No carotid bruits are heard. Heart is regular rate and rhythm without murmur. Lungs are clear to auscultation bilaterally. Abdomen is distended and mildly tender. NG tube is in the left nostril. There are large scars across the abdomen. Extremities have no ankle edema. Skin has no rash or jaundice. Motor function is 3/5 throughout. There is no tremor. Reflexes are symmetric. Objective Labs 04/25/25 10:04/25/25 10:01 Labs: Laboratory Results - last 24 hr 04/25/25 04/25/25 10:01 12:08 WBC 17.1 H RBC 5.69 Hgb 18.4 H Hct 54.4 H MCV 95.5 MCH 32.3 MCHC 33.8 RDW 13.8 Plt Count 375 Neut % (Auto) 89.3 H Lymph % (Auto) 3.6 L [place] % (Auto) 5.5 Eos % (Auto) 0.5 L Baso % (Auto) 1.1 Neut # (Auto) 69471 H Lymph # (Auto) 600 L [place] # (Auto) 900 Eos # (Auto) 100 Baso # (Auto) 200 H Sodium 139 Potassium 4.2 Chloride 99 Carbon Dioxide 24 BUN 30 H Creatinine 1.49 H Estimated GFR 51 L BUN/Creatinine Ratio 20.1 Glucose 194 H Lactate 4.2 H* 1.3 Calcium 9.9 Total Bilirubin 2.4 H AST 34 ALT 29 Alkaline Phosphatase 113 Total Protein 9.5 H Albumin 5.5 H Globulin 4.0 Albumin/Globulin Ratio 1.4 Lipase 54 Procalcitonin 1.27 H Assessment & Plan Time-Based Coding :: [TOTAL MINUTES] spent with patient and on the chart (including review of chart, obtaining history, exam, reviewing outside data, placing orders, documenting exam and treatment plan, and counseling patient) on [DATE].
--- NOTE | 2025-04-25 14:25 | DI.RAD.S_ITS ---
PROCEDURE: XR ABDOMEN 1V INDICATIONS: NG tube confirmation TECHNIQUE: One view of the abdomen acquired. COMPARISON: [facility], CT, CT ABDOMEN PELVIS W CON, 04/25/2025, 10:44. FINDINGS AND IMPRESSION: Enteric tube terminates in the gastric cardia with side port above the GE junction. 10-15 cm of further advancement suggested Dilated upper small bowel loops, better assessed on CT. Dictated by: David Canales M.D. on 04/25/2025 at 15:07 Approved by: David Canales M.D. on 04/25/2025 at 15:08
[2025-04-25] MEDS: DEXTROSE 5%-0.9% NS 1,000 ML 125 ML IV (17:21)
--- NOTE | 2025-04-26 | DI.RAD.S_ITS ---
PROCEDURE: XR GASTROGRAFIN CHALLENGE COMPARISON: [facility], CR, XR ABDOMEN 1V, 04/25/2025, 14:30. INDICATIONS: small bowel obstruction FINDINGS/IMPRESSION: Contrast is seen throughout the small bowel and colon. No significantly dilated loops of small bowel are appreciated. Dictated by: Cristian Turcios M.D. on 04/26/2025 at 12:10 Approved by: Cristian Turcios M.D. on 04/26/2025 at 12:12
[2025-04-26] MEDS: DEXTROSE 5%-0.9% NS 1,000 ML 125 ML IV ×3 (00:50→22:00)
[2025-04-26 06:29] LABS: Add Manual Diff / Slide Review NO; Hematocrit 46.9 % (41-53); Hemoglobin 15.9 g/dL (13.5-17.5); Lymphocytes Absolute Auto 1000 /uL (1100-4500); Mean Corpuscular HGB Conc 34.0 % (30-36); Mean Corpuscular Hemoglobin 32.6 PG (26-34); Mean Corpuscular Volume 96.0 fL (80-100); Platelet Count 274 X10^3/uL (150-400)
[2025-04-26 06:42] LABS: Alanine Aminotransferase 14 IU/L (<50); Albumin 4.1 g/dL (3.5-5.0); Albumin Globulin Ratio 1.4 (1.0-2.8); Alkaline Phosphatase 76 U/L (38-126); Blood Urea Nitrogen 38 mg/dL (9-20); Calcium 8.8 mg/dL (8.4-10.2); Carbon Dioxide 26 mmol/L (22-32); Chloride 103 mmol/L (98-107); Estimated Glomerular Filt Rate > 60 mL/min (>60); Globulin 3.0 g/dL (1.7-4.1); Glucose 132 mg/dL (70-99); HEMOLYSIS 41 (0-50); Potassium 4.0 mmol/L (3.4-5.1); Sodium 139 mmol/L (137-145); Total Protein 7.1 g/dL (6.3-8.2)
[2025-04-26 07:17] LABS: Magnesium 1.7 mg/dL (1.6-2.3); Phosphorous 3.2 mg/dL (2.3-3.7)
--- NOTE | 2025-04-26 07:36 | PM.PN.IH.1 ---
Subjective Subjective Date Patient Seen: 04/26/25 Time Patient Seen: 07:36 Interval history: NGT 850cc overnight Patient denies flatus or stool Exam Vital Signs (past 8 hours): Oxygen Delivery Method Room Air Const General: comfortable Orientation: alert and oriented x3 Resp Effort & Inspection: normal respiratory effort and able to speak in complete sentences Cardio Rate: regular rate GI Other: ABD: soft, distended, non-peritoneal, stable exam Objective Labs 04/26/25 06:10 04/26/25 06:10 Labs: Laboratory Results - last 24 hr 04/25/25 04/25/25 04/26/25 10:01 12:08 06:10 WBC 17.1 H 11.2 H RBC 5.69 4.89 Hgb 18.4 H 15.9 Hct 54.4 H 46.9 MCV 95.5 96.0 MCH 32.3 32.6 MCHC 33.8 34.0 RDW 13.8 13.5 Plt Count 375 274 Neut % (Auto) 89.3 H 77.7 H Lymph % (Auto) 3.6 L 9.0 L [place] % (Auto) 5.5 11.8 Eos % (Auto) 0.5 L 1.0 L Baso % (Auto) 1.1 0.5 Neut # (Auto) 36425 H 8700 H Lymph # (Auto) 600 L 1000 L [place] # (Auto) 900 1300 H Eos # (Auto) 100 100 Baso # (Auto) 200 H 100 Sodium 139 139 Potassium 4.2 4.0 Chloride 99 103 Carbon Dioxide 24 26 BUN 30 H 38 H Creatinine 1.49 H 1.04 Estimated GFR 51 L > 60 BUN/Creatinine Ratio 20.1 36.5 H Glucose 194 H 132 H Lactate 4.2 H* 1.3 Calcium 9.9 8.8 Phosphorus 3.2 Magnesium 1.7 Total Bilirubin 2.4 H 1.4 H AST 34 20 ALT 29 14 Alkaline Phosphatase 113 76 Total Protein 9.5 H 7.1 Albumin 5.5 H 4.1 Globulin 4.0 3.0 Albumin/Globulin Ratio 1.4 1.4 Lipase 54 Procalcitonin 1.27 H PFSH Medical History (Updated 04/25/25 @ 19:13 by Jeancarlos Heaton MD) HLD (hyperlipidemia) HTN (hypertension) Bowel obstruction Surgical History (Updated 04/25/25 @ 19:14 by Jeancarlos Heaton MD) History of intestinal surgery Family History (Updated 04/25/25 @ 19:14 by Jeancarlos Heaton MD) Mother COPD (chronic obstructive pulmonary disease) Social History household members: significant other Smoking Status: Current every day smoker alcohol intake: never Assessment & Plan Assessment and plan (1) Small bowel obstruction: Status: Acute Plan SBO Gastrografin challenge today Clinical high grade obstruction K, Mg normal WBC downtrending 17 to 11 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 PROFEE Associate Of Science In Nursing Document charge(s): Yes Charge Codes Subsequent inpatient/observation care: [id number]
[2025-04-26 08:50] VITALS: BP 153/88; PULSE 80; RESP 17; TEMP 36.6; O2SAT 96
[2025-04-26] MEDS: ENOXAPARIN 40 MG/0.4 ML SYRINGE SUBCUT (09:26)
[2025-04-26] MEDS: ONDANSETRON 4 MG/2 ML INJ IV ×2 (10:17→20:32)
[2025-04-26 19:00] VITALS: BP 180/106; PULSE 80; RESP 16; TEMP 36; O2SAT 97
[2025-04-26 22:11] VITALS: BP 175/101
[2025-04-26 22:59] VITALS: BP 194/111; PULSE 87
[2025-04-26] MEDS: hydrALAZINE 20 MG/ML VIAL 10 MG IV (22:59)
[2025-04-26 23:42] VITALS: BP 161/94
[2025-04-27] MEDS: DEXTROSE 5%-0.9% NS 1,000 ML 125 ML IV (05:47)
[2025-04-27 05:55] VITALS: BP 172/108
[2025-04-27 05:56] VITALS: BP 155/92
[2025-04-27 06:05] LABS: Magnesium 1.6 mg/dL (1.6-2.3)
[2025-04-27 07:00] VITALS: BP 173/110; PULSE 77; RESP 17; TEMP 36.6; O2SAT 96
--- NOTE | 2025-04-27 07:26 | PM.PN.IH.1 ---
Subjective Subjective Date Patient Seen: 04/27/25 Time Patient Seen: 07:27 Interval history: GGC normal yesterday +contrast diarrhea as expected c/o GERD Still having upper abd pain Exam Vital Signs (past 8 hours): - 04/26/25 23:42 04/27/25 05:55 04/27/25 05:56 Blood Pressure 161/94 H 172/108 H 155/92 H Oxygen Delivery Method Room Air Oxygen Flow Rate 0 GI Other: ABD: still distended,+tympany, non-peritoneal Objective Labs 04/26/25 06:10 04/26/25 06:10 Labs: Laboratory Results - last 24 hr 04/27/25 05:25 Magnesium 1.6 PFSH Medical History (Updated 04/25/25 @ 19:13 by Jeancarlos Heaton MD) HLD (hyperlipidemia) HTN (hypertension) Bowel obstruction Surgical History (Updated 04/25/25 @ 19:14 by Jeancarlos Heaton MD) History of intestinal surgery Family History (Updated 04/25/25 @ 19:14 by Jeancarlos Heaton MD) Mother COPD (chronic obstructive pulmonary disease) Social History household members: significant other Smoking Status: Current every day smoker alcohol intake: never Assessment & Plan Assessment and plan (1) Small bowel obstruction: Status: Acute Plan GGC normal yesterday Contrast diarrhea as expected Still having abd pain Tympany, abd distention continues PPI for GERD Start clears True test will be to see how he tolerates solid food Time-Based Coding :: [TOTAL MINUTES] spent with patient and on the chart (including review of chart, obtaining history, exam, reviewing outside data, placing orders, documenting exam and treatment plan, and counseling patient) on [DATE]. PROFEE Calendering Supervisor Document charge(s): Yes Charge Codes Subsequent inpatient/observation care: [id number]
--- NOTE | 2025-04-27 07:43 | DI.RAD.S_ITS ---
PROCEDURE: XR KUB INDICATIONS: SBO TECHNIQUE: One view of the abdomen acquired. COMPARISON: [facility], CR, XR ABDOMEN 1V, 04/25/2025, 14:30. [facility], CR, XR GASTROGRAFIN CHALLENGE, 04/26/2025, 11:18. FINDINGS: Surgical changes and devices: None. Bowel: Multiple dilated small bowel loops in the mid and upper abdomen without bladder like distribution of the bowel loops. Contrast noted in the large bowel. Soft tissues: No suspicious abdominal calcifications. Visualized solid organ contours appear normal in size. Bones: No suspicious bony lesions. IMPRESSION: Multiple dilated small bowel loops concerning for small bowel obstruction. Small bowel dilation has worsened since 04/26/2025. Dictated by: Lynda Knowles M.D. on 04/27/2025 at 8:51 Approved by: Lynda Knowles M.D. on 04/27/2025 at 8:53
--- NOTE | 2025-04-27 07:49 | CM.DANOTE ---
Initial DCP Assessment Visit Note Reviewed EMR and team rounds for pt's medical status and updates. Did not meet with pt f/f due to unit triage needs. Pt lives independently at baseline with his Significant Other in [place]. She will also plan to transport him back home at time of d/c. Payor: [employer] PCP Pt is a 65 year-old M with a PMH of HTN, dislipidemia, and 12-prior abdominal surgeries within 24-days several years ago. He presented to the ED with c/o a possible new bowel obstruction. He's had worsening abdominal pain and distention for the last 5-days, and began having N/V overnight. CT abd/pelvis did show a developing small bowel obstruction. Pt was made NPO and admitted to the floor for further evaluation and tx. Surgery was consulted, and the initial plan is to start with a Gastrogaphin challenge, and possible surgery if he cannot pass the Gastrographin. DCP will continue to monitor for any further developing needs for resources or assistance prior to d/c home. Discharge Planning/Care Management CM Discharge Assessment Start: 04/25/25 14:14 Freq: Status: Active Protocol: Document 04/27/25 07:46 DPL (Rec: 04/27/25 07:48 DPL [id number]) Discharge Planning Assessment Assigned Discharge GREG Harper Organizational Psychologist Insurance [facility] Advance Directives? No History Provided By Medical Record Has Patient been No admitted in last 30 days? Prior Living House Arrangements Household Members significant other Type of Drives own vehicle transporation used prior to admit Independent with ADL Yes 's Is patient alert and Yes oriented? Comment N/A Comment No identified home d/c needs at this time. Barriers to No Discharge Discharge Plan Home Referrals Initiated None needed Review Status In Process Please Provide Date 04/27/25 Initial DC Assessment Was Performed
[2025-04-27] MEDS: ENOXAPARIN 40 MG/0.4 ML SYRINGE SUBCUT (08:22)
[2025-04-27] MEDS: PANTOPRAZOLE DR 40 MG TABLET PO (08:22)
[2025-04-27] MEDS: MAGNESIUM CHLORIDE 64 MG TABLET 128 MG PO (12:10)
--- NOTE | 2025-04-27 16:53 | PM.PN.1 ---
Subjective Subjective Date Patient Seen: 04/26/25 Interval history: Chief complaint: Abdominal distention and recurrent bowel obstruction/obstipation History of present illness: 04/25: 65-year-old male with a history of hypertension, hyperlipidemia and prior bowel perforations after a bowel obstruction who presents with 2 weeks of abdominal pain along with nausea and fevers followed by 4 days of diarrhea and vomiting bringing him finally to the ED. With placement of a nasogastric tube he slowly begins to feel better and copious amounts of bilious fluid are removed. His white blood count is 17.1 with a hemoglobin of 18.4 and a procalcitonin of 1.27. The total bilirubin is 2.4. The lactic acid level was initially 4.2, coming down to 1.[address] scan shows a proximal small-bowel obstruction with the jejunum dilated to 6 cm. Hospital course: 04/26: Patient has started a Gastrografin challenge is having a lot of distention but is starting to pass flatus Review of systems: No fever or chills No chest pain palpitations shortness for breath No urinary symptom Physical exam: Elderly male appears very uncomfortable HEENT unremarkable The labored respirations Abdomen is distended tympanitic few bowel Assessment and plan: Acute small-bowel obstruction, present on admission. Active. -general surgery has consulted and will be seeing him. -NG tube draining copious bilious fluid. -NPO, follow leukocytosis, hemoconcentration and electrolytes. -Gastrografin challenge is planned after decompression. Acute kidney injury, present on admission. Active. -creatinine 1.49. Treat with SBO decompression and IV fluid. History of hypertension, present on admission. Active. -no current treatment. -follow and treat with IV/p.o. as indicated and tolerated. Enoxaparin for DVT prevention 35 minutes were involved in the evaluation of this patient including [id number] evaluation physical examination review of laboratory and imaging a objective findings Exam Vital Signs (past 8 hours): Oxygen Delivery Method Room Air Oxygen Flow Rate 0 Objective Labs 04/26/25 06:10 04/26/25 06:10 Labs: Laboratory Results - last 24 hr 04/27/25 05:25 Magnesium 1.6 PFSH Medical History (Updated 04/25/25 @ 19:13 by Jeancarlos Heaton MD) HLD (hyperlipidemia) HTN (hypertension) Bowel obstruction Surgical History (Updated 04/25/25 @ 19:14 by Jeancarlos Heaton MD) History of intestinal surgery Family History (Updated 04/25/25 @ 19:14 by Jeancarlos Heaton MD) Mother COPD (chronic obstructive pulmonary disease) Social History household members: significant other Smoking Status: Current every day smoker alcohol intake: never Assessment & Plan Time-Based Coding :: [TOTAL MINUTES] spent with patient and on the chart (including review of chart, obtaining history, exam, reviewing outside data, placing orders, documenting exam and treatment plan, and counseling patient) on [DATE].
--- NOTE | 2025-04-27 16:56 | P.DS_ITS ---
History of Present Illness History of Present Illness Date Patient Seen: 04/27/25 Chief complaint: possible intestinal blockage Narrative: Chief complaint: Abdominal distention and recurrent bowel obstruction/obstipation History of present illness: 04/25: 65-year-old male with a history of hypertension, hyperlipidemia and prior bowel perforations after a bowel obstruction who presents with 2 weeks of abdominal pain along with nausea and fevers followed by 4 days of diarrhea and vomiting bringing him finally to the ED. With placement of a nasogastric tube he slowly begins to feel better and copious amounts of bilious fluid are removed. His white blood count is 17.1 with a hemoglobin of 18.4 and a procalcitonin of 1.27. The total bilirubin is 2.4. The lactic acid level was initially 4.2, coming down to 1.[address] scan shows a proximal small-bowel obstruction with the jejunum dilated to 6 cm. Hospital course: 04/26: Patient has started a Gastrografin challenge is having a lot of distention but is starting to pass flatus 04/27: Patient has tolerated tolerate clear liquid and soft diet some manageable pain after eating but no additional distention Review of systems: No fever or chills No chest pain palpitations shortness for breath No urinary symptom Physical exam: Elderly male appears very uncomfortable HEENT unremarkable The labored respirations Abdomen is distended tympanitic few bowel Assessment and plan: Acute small-bowel obstruction, present on admission. Active. * I believe this is actually more obstipation and dilation of small bowel that is now patulous from recurrent obstructions with very little peristalsis * Daily laxative to ensure that there is adequate daily laxation of the colon Acute kidney injury, present on admission. Active. * Resolved History of hypertension, present on admission. Active. * Follow up with PCP Disposition: * Discharge to home with gentle diet advancement and t.i.d. laxative 35 minutes were involved in the evaluation of this patient including [id number] evaluation physical examination review of laboratory and imaging a objective findings Discharge Providers Provider Date of admission: 04/25/25 14:09 Discharge Date: 04/27/25 Discharge provider: Wolfgang Bradshaw MD Exam Vital Signs (past 8 hours): Oxygen Delivery Method Room Air Oxygen Flow Rate 0 Objective Labs 04/26/25 06:10 04/26/25 06:10 Labs: Laboratory Results - last 24 hr 04/27/25 05:25 Magnesium 1.6 PFSH Medical History (Updated 04/25/25 @ 19:13 by Jeancarlos Heaton MD) HLD (hyperlipidemia) HTN (hypertension) Bowel obstruction Surgical History (Updated 04/25/25 @ 19:14 by Jeancarlos Heaton MD) History of intestinal surgery Family History (Updated 04/25/25 @ 19:14 by Jeancarlos Heaton MD) Mother COPD (chronic obstructive pulmonary disease) Social History household members: significant other Smoking Status: Current every day smoker alcohol intake: never Discharge Plan Discharge Plan Patient Disposition: Home Discharge orders & Medications Prescriptions: New lactulose 10 gram/15 mL solution 20 g PO TID Qty: 1200 5RF ondansetron HCl 4 mg tablet 4 mg PO Q6H PRN (Reason: nausea and vomiting) Qty: 20 1RF Visit Report/Discharge Packet Stand Alone Forms: Patient Portal/API, Stroke Signs & Symptoms
--- NOTE | 2025-04-27 18:32 | PC.NURSE ---
Discharge note: Patient discharge home per MD order, discussed importance of establishing care with a primary MD, medications Rx adherence, and signs of worsening symptoms. Home via private vehicle accompanied by family. Rx to be picked up on way home. Ambulated to private vehicle.
== END 2025-04-27 18:00 | disposition home or self-care (01) | DRG 390 ==
LOC: ED 09:52 → AC 14:10
PROVIDERS: Surgery; Admitting Provider Family Medicine; Emergency Provider Emergency Medicine; Referring Provider Emergency Medicine; Visit Provider Family Medicine
DX: K56.609 Unspecified intestinal obstruction, unspecified as to partial versus complete obstruction (principal); I10 Essential (primary) hypertension; F17.200 Nicotine dependence, unspecified, uncomplicated; K59.00 Constipation, unspecified; Z87.19 Personal history of other diseases of the digestive system; Z98.890 Other specified postprocedural states
CPT/HCPCS: 36415; 74018; 74177; 80053; 83605; 83690; 83735; 84100; 84145; 85025; 87040; 93005; 93010; 96361; 96374; 96375; 96376; 99231; 99233; 99284; J0360; J1171; J1650; J2405; J7030; J7042; Q9967